=== PATIENT | male | born 1975 | race Caucasian/White ===

== ENCOUNTER 2020-10-23 17:58 | Emergency (ER) | payer OTHER, SELFPAY ==
--- NOTE | ~2020-10-23 | XR_ITS ---
EXAMINATION: XR hand LT min 3V DATE: 10/23/2020 18:46 INDICATION: Left hand pain. Palmar laceration. TECHNIQUE: 3 views of left hand were obtained. COMPARISON: Left wrist radiographs 06/19/2017 FINDINGS: Bone alignment is normal. No fracture. There is mild osteoarthritis of first carpometacarpa l joint and first interphalangeal joint. No radiopaque foreign body. IMPRESSION: 1. No fracture or radiopaque foreign body. Reviewed, dictated and finalized at location A.
[2020-10-23 18:25] VITALS: BP 101/50; PULSE 60; RESP 15; TEMP 36.6; O2SAT 100
--- NOTE | 2020-10-23 18:40 | PC.NURSE ---
xray at bedside.
[2020-10-23 18:49] VITALS: PULSE 87; RESP 15; O2SAT 98
--- NOTE | 2020-10-23 18:53 | ED.WOUNDLAC ---
HPI - Wound/Laceration General Chief Complaint: Wound/Laceration Stated Complaint: hand laceration Time Seen by Provider: 10/23/20 18:02 Source: patient Mode of arrival: ambulatory Limitations: no limitations History of Present Illness HPI narrative: This is a 45-year-old male that presents to the emergency department for left hand laceration sustained just prior to arrival. Reports he was trying to put a mower up on a trailer. Reports the mower fell and landed on his left hand. Reports a laceration to the palm. He is not up-to-date on tetanus. Denies decreased range of motion or numbness. Related Data Allergies Allergy/AdvReac Type Severity Reaction Status Date / Time No Known Allergies Allergy Unverified 10/23/20 18:04 Review of Systems Review of Systems: Narrative: CONSTITUTIONAL: Denies fever SKIN: Reports laceration MUSCULOSKELETAL: Denies joint pain, or myalgia. NEUROLOGIC: Denies numbness All systems reviewed & are unremarkable except as noted in HPI and below PMFSH Past Medical History Medical History (Updated 10/23/20 @ 21:18 by Madhavi Garza PA-C) History of hyperlipidemia History of hypertension Exam Narrative: Exam Narrative: GENERAL: Well-appearing, well-nourished, and in no acute distress. HEAD: Normocephalic, atraumatic. EYES: EOMI. EXTREMITIES: Normal range of motion. Left palm with 5cm linear laceration into subcutaneous tissue SKIN: Warm, dry, no rash. NEURO: No focal deficits. Alert and oriented x3. PSYCH: Normal mood and affect Course Vital Signs Vital signs: Vital Signs Temperature 98 F 10/23/20 18:25 Pulse Rate 60 10/23/20 18:25 Respiratory Rate 15 10/23/20 18:25 Blood Pressure 101/50 L 10/23/20 18:25 Pulse Oximetry 100 10/23/20 18:25 Temperature 98 F 10/23/20 18:25 Pulse Rate 97 10/23/20 19:53 Respiratory Rate 18 10/23/20 19:03 Blood Pressure 140/97 H 10/23/20 19:53 Pulse Oximetry 96 10/23/20 19:53 Procedures Laceration Laceration 1: Date: 10/23/20 Time: 21:11 Site: hand Side (If applicable): left Size (cm): 5 Description: linear Depth: simple, single layer Local Anesthetic: lidocaine 1% and with epi Amount of anesthesia used (mL): 4 Pre-repair: wound explored and irrigated extensively ====== Skin Level ====== Skin layer closed with: nylon Size (cm): 5-0 Number of sutures: 6 Technique: simple, interrupted ====== Subcutaneous Layer ====== ====== Muscle Layer ====== ====== Tendon Layer ====== MDM - Wound/Laceration MDM Narrative Medical decision making narrative: Patient presents emergency department for laceration to the left hand sustained just prior to arrival. Wound was irrigated and closed with sutures. Left hand x-rays without acute osseous abnormalities or foreign body. Patient was updated on tetanus. He was educated on wound care. He is to follow-up with primary care doctor. He was given warnings to return to the ER Imaging Data Radiologist's impression: ITS Impressions Hand X-Ray 10/23/20 18:47 IMPRESSION: 1. No fracture or radiopaque foreign body. Critical Care Time Critical Care Time Critical Care Time: No Discharge Plan Discharge Clinical Impression: Laceration Patient Disposition: Home, Self-Care Condition: Stable Instructions: Antibiotic Form, Care For Your Stitches (ED), Laceration (ED) Additional Instructions: Return to the emergency department if you experience fever, redness or swelling of your wound, abnormal drainage from your wound, or any other symptoms that are concerning to you. Apply antibiotic ointment daily. Do not soak the wound. Clean with mild soap and water daily. Take oral antibiotic as prescribed Follow-up with your primary care doctor for suture removal in 10-14 days. Prescriptions: New cephalexin 500 mg capsule 500 mg PO Q8H 5 Days Qty: 15 RF
[2020-10-23] MEDS: TETANUS,DIPHTHERIA,AC PERTUSSIS ADULT (0.5 ML) BOOSTRIX IM (18:54)
[2020-10-23 19:03] VITALS: BP 135/92; PULSE 90; RESP 18; O2SAT 96
[2020-10-23 19:53] VITALS: BP 140/97; PULSE 97; O2SAT 96
[2020-10-23] MEDS: ONDANSETRON HCL ODT 4 MG TABLET (20:48)
[2020-10-23 21:40] VITALS: BP 137/84; PULSE 82; RESP 20; O2SAT 97
== END 2020-10-23 21:43 | disposition home or self-care (01) ==
PROVIDERS: Emergency Provider Emergency Medicine; PCP Nurse Practitioner Family
DX: S61.412A Laceration without foreign body of left hand, initial encounter (principal); E78.5 Hyperlipidemia, unspecified; I10 Essential (primary) hypertension; Z23 Encounter for immunization
CPT/HCPCS: 12002; 73130; 90471; 90715; 99283; A9270

== ENCOUNTER 2021-05-09 06:07 | Inpatient (IN) | payer OTHER, SELFPAY ==
[2021-05-09] VITALS (16 sets, daily range): BP systolic 101–160; BP diastolic 78–102; PULSE 99–117; RESP 18–28; TEMP 37.2–39.2; O2SAT 88–96; BMI 42.7
--- NOTE | ~2021-05-09 | XR_ITS ---
XR chest 1V portable DATE: 05/09/2021 07:48 INDICATION: Increasing shortness of breath, cough, fever. Covid-positive. TECHNIQUE: Portable upright AP chest on 05/09/2021 at 0739 hours COMPARISON: None FINDINGS: There are patchy infiltrates in the mid and particularly lower lung zones bilaterally. Heart size is borderline, not optimally evaluated on AP projection because of magnification. No pleural effusion or pneumothorax. IMPRESSION: Patchy bilateral mid and particularly lower lung infiltrates, suggesting bilateral pneumo sravanthi Reviewed, dictated and finalized at location A. TIZER OPERATOR IMPRESSION: Patchy bilateral mid and particularly lower lung infiltrates, sugge sting bilateral pneumonia
[2021-05-09] MEDS: ONDANSETRON INJ 4 MG/2 ML VIAL IV PUSH (07:57)
[2021-05-09] MEDS: ACETAMINOPHEN 500 MG TABLET 1000 MG PO (07:58)
[2021-05-09] MEDS: SODIUM CHLORIDE 0.9% IV 1,000 ML 999 ML IV CONT (07:59)
[2021-05-09 08:07] LABS: Basophils Percent Auto 0.3 % (0.2-1.2); Hematocrit 48.5 % (42.0-52.0); Hemoglobin 17.1 g/dL (14.0-18.0); Immature Granulocyte Absolute 0.04 K/mm3 (0.00-0.031); Immature Granulocyte Percent A 0.5 % (0-0.5); Lymphocytes Percent Auto 7.6 % (18.3-44.2); Mean Corpuscular HGB Conc 35.3 g/dl (32-36); Mean Corpuscular Hemoglobin 31.3 pg (26-34); Mean Corpuscular Volume 88.7 fl (80-100); Mean Platelet Volume 9.4 fl (7.4-10.4); Monocytes Absolute Auto 0.2 K/mm3 (0.1-0.6); Monocytes Percent Auto 2.9 % (2.6-8.5); Neutrophils Absolute Auto 7.1 K/mm3 (1.3-6.7); Neutrophils Percent Auto 88.7 % (45.5-73.1); Platelet Count Result 155 k/mm3 (150-375); Red Blood Count 5.47 M/mm3 (4.6-6.20); White Blood Count 7.9 K/mm3 (4.5-10.0)
[2021-05-09 08:24] LABS: Alanine Aminotransferase 50 U/L (4-50); Albumin Level 4.3 g/dL (3.5-5.1); Alkaline Phosphatase 70 U/L (38-126); Anion Gap 12 mmol/L (8-16); Aspartate Amino Transferase 40 U/L (17-59); Bilirubin,Total 0.8 mg/dL (0.2-1.3); Blood Urea Nitrogen 23 mg/dL (9-20); Calcium 8.6 mg/dL (8.4-10.2); Carbon Dioxide 21 mmol/L (22-30); Chloride 103 mmol/L (98-107); Estimated CRCL calculation 129 ml/min; Estimated Glomerular Filt Rate > 60; Glucose 139 mg/dL (65-110); Potassium 3.7 mmol/L (3.4-5.0); Sodium 136 mmol/L (137-145)
--- NOTE | 2021-05-09 09:32 | ED.FEVER ---
HPI - Fever General Chief Complaint: Fever Stated Complaint: Fever, COVID + Time Seen by Provider: 05/09/21 07:01 History of Present Illness HPI Narrative: Patient is a 45-year-old male who presents ER with cough and shortness of breath. Recently diagnosed. Reports fevers and chills. He also has had some nausea vomiting diarrhea. No alleviating factors. Concerned he is dehydrated. Related Data Home Medications Medication Instructions Recorded Confirmed albuterol sulfate 2 inh INHALATION Q4-5H PRN 05/09/21 05/09/21 azithromycin 250 mg PO DAILY 05/09/21 05/09/21 loratadine 10 mg PO DAILY 05/09/21 05/09/21 losartan 50 mg PO DAILY 05/09/21 05/09/21 pravastatin 40 mg PO DAILY 05/09/21 05/09/21 Allergies Allergy/AdvReac Type Severity Reaction Status Date / Time No Known Allergies Allergy Unverified 05/09/21 10:23 Review of Systems Review of Systems: All systems reviewed & are unremarkable except as noted in HPI and below Constitutional: Constitutional: Reports chills, Reports fatigue and Reports fever(s) ENT: Reports nasal congestion and Reports sore throat Cardiovascular: Cardiovascular: Denies chest pain, Denies rapid heart rate and Denies radiating jaw, neck or arm pain Respiratory: Respiratory: Reports cough, Reports dyspnea and Denies wheezing Gastrointestinal: Gastrointestinal: Denies abdominal pain, Reports diarrhea, Reports nausea and Reports vomiting PMFSH Past Medical History Medical History (Updated 05/09/21 @ 17:22 by Joseph Mina MD) History of hyperlipidemia History of hypertension Family History Family History (Updated 05/09/21 @ 13:51 by Cornelia Moeller RN) Father Acute myocardial infarction Mother Diabetes mellitus Coronary arteriosclerosis after coronary artery bypass grafting Social History Social History Smoking status: Never smoker Alcohol intake: never Substance use: never Spiritual care concerns: No Exam Narrative: GENERAL: Well-appearing, well-nourished, and in no acute distress. HEAD: Normocephalic, atraumatic. CHEST: Clear to auscultation. No respiratory distress. HEART: Tachycardic and regular. Normal peripheral pulses. ABDOMEN: Soft, nontender, nondistended. EXTREMITIES: Normal range of motion. No edema. SKIN: Warm, dry, no rash. NEURO: Alert and oriented x3. PSYCH: Normal mood and affect. 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 Vital Signs Vital signs: Vital Signs Temperature 100.8 F H 05/09/21 06:18 Pulse Rate 117 H 05/09/21 06:18 Respiratory Rate 24 H 05/09/21 06:18 Blood Pressure 138/91 H 05/09/21 06:18 Pulse Oximetry 94 05/09/21 06:18 Temperature 99.0 F 05/09/21 06:56 Pulse Rate 116 H 05/09/21 16:12 Respiratory Rate 28 H 05/09/21 16:12 Blood Pressure 145/78 H 05/09/21 16:12 Pulse Oximetry 93 05/09/21 16:12 MDM - Fever Lab Data Result diagrams: 05/09/21 08:00 05/09/21 08:00 Labs: Lab Results 05/09/21 05/09/21 Range/Units 08:00 08:00 WBC 7.9 (4.5-10.0) K/mm3 RBC 5.47 (4.6-6.20) M/mm3 Hgb 17.1 (14.0-18.0) g/dL Hct 48.5 (42.0-52.0) % MCV 88.7 (80-100) fl MCH 31.3 (26-34) pg MCHC 35.3 (32-36) g/dl RDW 13.0 (11.5-14.5) % Plt Count 155 (150-375) k/mm3 MPV 9.4 (7.4-10.4) fl Immature Gran % (Auto) 0.5 (0-0.5) % Neut % (Auto) 88.7 H (45.5-73.1) % Lymph % (Auto) 7.6 L (18.3-44.2) % [place] % (Auto) 2.9 (2.6-8.5) % Eos % (Auto) 0.0 (0-4.4) % Baso % (Auto) 0.3 (0.2-1.2) % Lymph # (Auto) 0.60 L (0.9-3.2) K/mm3 [place] # (Auto) 0.2 (0.1-0.6) K/mm3 Eos # (Auto) 0.0 (0-0.3) K/mm3 Baso # (Auto) 0.0 (0.0-0.1) K/mm3 Abs Immat Gran (auto) 0.04 H (0.00-0.031) K/mm3 Absolute Neuts (auto) 7.1 H (1.3-6.7) K/mm3 Absolute Nucleated RBC 0.0 (0.0-0.012) K/mm3 Nucleated RBC % 0.0 (0.0-0.2) % Sodium 136 L (137-145) mmol/L Potassium 3.7 (3.4-
--- NOTE | 2021-05-09 13:39 | ADMGEN ---
This patient, Allen Cuello, was admitted to Virtual Bed 3rd Floor-2. Patient/family oriented to hospital policies and general routines including ID bracelet, bed and alarms, visiting hours, pain management, procedures, bathroom and other care routines, personal items, smoking policy, room service/diet, and visiting hours. Information on how to activate the Rapid Response Team has been discussed. Patient/Family are encouraged to report perceived risks to care and to ask questions if they do not understand what they are told or what they should do. ADMISSION PROCESS DONE IN ED AT BEDSIDE.
--- NOTE | 2021-05-09 16:48 | PC.NURSE ---
This patient, Allen Cuello, was received from [ER] on 05/09/21 at 1650. Patient/family oriented to unit policies and routines
[2021-05-09] MEDS: ACETAMINOPHEN 325 MG TABLET 650 MG PO ×2 (17:45→21:17)
--- NOTE | 2021-05-09 20:25 | PM.IMHP ---
H&P: HPI History of Present Illness Date/Time: 05/09/21 20:25 Chief Complaint: FEVER Narrative: This is a 45-year-old male with past medical history significant for dyslipidemia, hypertension, obesity. Patient presented to the emergency after he had a fever at home of 101.5 patient states that he tested positive for COVID last week, has been having fevers chills rigors generalized malaise body aches and pains cough nonproductive, poor appetite, night sweats. Patient states that he slept all through the weekend and finally today after he had a fever at home his prompted him to come to the emergency room. Preliminary workup was significant for chest x-rays with infiltrates. Decision has been made to admit the patient for further evaluation, management and treatment Review of Systems Review of Systems: Fevers chills poor appetite muscle aches and pains low energy Constitutional: Constitutional: Reports chills, Reports fatigue, Reports fever(s), Reports lethargy, Reports malaise and Reports poor appetite Eyes: Eyes: Denies change in vision ENT: Denies dysphagia, Denies nasal congestion, Denies nasal discharge, Denies nasal obstruction and Denies odynophagia Cardiovascular: Cardiovascular: Denies lightheadedness, Denies radiating jaw, neck or arm pain, Denies palpitations and Denies dyspnea on exertion Respiratory: Respiratory: Denies cough and Denies dyspnea Gastrointestinal: Gastrointestinal: Denies abdominal pain, Denies diarrhea, Denies nausea and Denies vomiting Genitourinary: Genitourinary: Reports no additional male genitourinary complaints and Reports as per HPI Musculoskeletal: Musculoskeletal: Reports no additional musculoskeletal complaints and Reports as per HPI Integumentary/Breasts: Skin/Breast: Denies rash Neurologic: Denies focal weakness and Denies Sensory deficit (Neuro) Psychiatric: Psychiatric: Reports no additional psychiatric complaints and Reports as per HPI Endocrine: Endocrine: Reports as per HPI, Denies change in libido and Denies cold intolerance Hematologic/Lymphatic: Hematologic/Lymphatic: Reports no additional hematologic/lymphatic complaints and Reports as per HPI Allergic/Immunologic: Allergic/Immunologic: Reports no additional allergic/immunologic complaints [facility] Past Medical History Medical History (Updated 05/10/21 @ 02:02 by Brayan Butts MD) History of hyperlipidemia History of hypertension Family History Family History (Updated 05/09/21 @ 13:51 by Cornelia Moeller RN) Father Acute myocardial infarction Mother Diabetes mellitus Coronary arteriosclerosis after coronary artery bypass grafting Social History Social History Smoking status: Never smoker Alcohol intake: never Substance use: never Spiritual care concerns: No Meds Home Medications and Allergies Home Medications Medication Instructions Recorded Confirmed Type albuterol sulfate 2 inh INHALATION Q4-5H PRN 05/09/21 05/09/21 History azithromycin 250 mg PO DAILY 05/09/21 05/09/21 History loratadine 10 mg PO DAILY 05/09/21 05/09/21 History losartan 50 mg PO DAILY 05/09/21 05/09/21 History pravastatin 40 mg PO DAILY 05/09/21 05/09/21 History Allergies Allergy/AdvReac Type Severity Reaction Status Date / Time No Known Allergies Allergy Unverified 05/09/21 10:23 Vital Signs Vital Signs - 24 hr 05/09/21 06:18 05/09/21 06:56 05/09/21 07:10 Temperature 100.8 F H 99.0 F Pulse Rate 117 H 99 Respiratory Rate 24 H 26 H 26 H Blood Pressure 138/91 H 160/85 H Pulse Oximetry 94 96 94 05/09/21 07:31 05/09/21 09:08 05/09/21 10:00 Temperature Pulse Rate 105 H 112 H Respiratory Rate 24 H 22 H Blood Pressure 156/86 H 138/88 Pulse Oximetry 93 94 93 05/09/21 11:00 05/09/21 12:00 05/09/21 14:03 Temperature Pulse Rate 108 H 110 H 108 H Respiratory Rate 28 H 20 28 H Blood Pressure 128/89 101/80 147/102 H Pulse Oximetry 93 91 92 05/09/21 16:12 05/09/21 18:06 Temp
[2021-05-09] MEDS: cefTRIAXone 2 GM in SODIUM CHLORIDE 0.9% IV 100 ML 200 ML IVPB (21:18)
[2021-05-10] VITALS (10 sets, daily range): BP systolic 126–158; BP diastolic 70–94; PULSE 90–100; RESP 16–19; TEMP 36.4–39.8; O2SAT 90–91
[2021-05-10 02:03] LABS: INR 1.1; Prothrombin Time 14.2 Seconds (11.1-14.7)
[2021-05-10 02:04] LABS: Alanine Aminotransferase 41 U/L (4-50); Estimated CRCL calculation 106 ml/min; Estimated Glomerular Filt Rate > 60
[2021-05-10] MEDS: REMDESIVIR 200 MG/NS 250 ML 200 MG/250 ML BAG 250 MG IVPB (02:28)
[2021-05-10] MEDS: ACETAMINOPHEN 325 MG TABLET 650 MG PO ×2 (05:17→20:30)
--- NOTE | 2021-05-10 10:15 | PM.IMPN ---
Progress Note: A&P Assessment and Plan (1) Pneumonia due to 2019-nCoV: Code(s): U07.1 - COVID-19; J12.82 - Pneumonia due to coronavirus disease 2019 Status: Acute Assessment and Plan: Tested positive for covid on Friday05/07/20 Chest xray Patchy bilateral mid and particularly lower lung infiltrates, suggesting bilateral pneumonia Patient has been started on remdesivir plus dexamethasone day 1 Zithromax and Rocephin added for bacterial coverage trend inflammatory markers IS and cornette therapy Blood cultures pending Sputum culture ordered Continue to monitor Supportive care (2) Hypoxia: Code(s): R09.02 - Hypoxemia Status: Acute Assessment and Plan: Saturations have declined Supplemental oxygen was provided Wean to maintain saturations >90% (3) Hypertension: Code(s): I10 - Essential (primary) hypertension Status: Acute Assessment and Plan: 151 Continue home losartan Add hydralazine PRN with parameters trend BP adjust therapy as indicated (4) Hyperlipidemia: Code(s): E78.5 - Hyperlipidemia, unspecified Status: Acute Assessment and Plan: Continue home pravastatin 40mg PO daily Time Spent With Patient Time with patient: Greater than 35 minutes Subjective Date/time seen: 05/10/21 10:15 Interval history: Date/Time: 05/09/21 20:25 Narrative: This is a 45-year-old male with past medical history significant for dyslipidemia, hypertension, obesity. Patient presented to the emergency after he had a fever at home of 101.5 patient states that he tested positive for COVID last week, has been having fevers chills rigors generalized malaise body aches and pains cough nonproductive, poor appetite, night sweats. Patient states that he slept all through the weekend and finally today after he had a fever at home his prompted him to come to the emergency room. Preliminary workup was significant for chest x-rays with infiltrates. Decision has been made to admit the patient for further evaluation, management and treatment Date/Time 05/10/21 1015 He is in bed, and stated that he is feeling ok. He denies chest pain, sweats, fevers, and chills. He does have a productive cough which is producing a brown sputum. He did state that his breathing gets worse with activity. He also states that he is not hungry and that he has been trying to eat more jellos, applesauce, and mostly liquids. He also admits to be just plain tired. He is congested, and had some nausea yesterday. Review of Systems Review of Systems: All systems reviewed & are unremarkable except as noted in HPI and below Exam Const: General: cooperative, comfortable, well developed, alert, awake, in distress, ill appearing and tired appearing Nutritional Appearance: overweight Orientation/consciousness: oriented to person, oriented to place, oriented to time and patient oriented x3 HENMT: Head: normal to inspection, normocephalic and atraumatic Ears: hearing grossly normal bilaterally Face and sinus: normal facial exam Mouth: Yes Normal oral and palatal mucosa present Eyes: General: appearance normal, both eyes and all related structures Alignment and Position: alignment normal Pupils: Equal, round and reactive pupils present EOM: EOMs intact bilaterally Neck: Neck: full ROM, no lymphadenopathy and no JVD Thyroid: thyroid normal Lymphatic: no lymphadenopathy noted Resp: Effort & Inspection: normal respiratory effort and able to speak in complete sentences Auscultation: clear to auscultation bilaterally Cardio: Jugular venous distension: no JVD Rate: regular rate Rhythm: regular rhythm Heart sounds: S1 normal heart sound present and S2 normal heart sound present : General: Yes deferred Skin: General skin exam: normal color Lesions: no lesions Rashes: no rashes Trauma: no lacerations or abrasions Wounds: no wounds Hair: pierce
[2021-05-10] MEDS: ENOXAPARIN 40 MG/0.4 ML SYRINGE SUB-Q (10:26)
[2021-05-10] MEDS: PRAVASTATIN SODIUM 20 MG TABLET 40 MG PO (10:26)
[2021-05-10] MEDS: LOSARTAN POTASSIUM 50 MG TABLET PO (10:26)
[2021-05-10] MEDS: cefTRIAXone 2 GM in SODIUM CHLORIDE 0.9% IV 100 ML IVPB (22:12)
[2021-05-10] MEDS: REMDESIVIR 100 MG/NS 250 ML 100 MG/250 ML BAG 250 MG IVPB (23:27)
[2021-05-11 01:00] VITALS: BP 147/75; PULSE 77; RESP 16; TEMP 37.1; O2SAT 92
[2021-05-11 05:00] VITALS: BP 135/73; PULSE 76; RESP 16; TEMP 37.3; O2SAT 93
[2021-05-11 06:41] LABS: Basophils Percent Auto 0.1 % (0.2-1.2); Hematocrit 45.1 % (42.0-52.0); Hemoglobin 16.1 g/dL (14.0-18.0); Immature Granulocyte Absolute 0.05 K/mm3 (0.00-0.031); Immature Granulocyte Percent A 0.7 % (0-0.5); Lymphocytes Absolute Auto 1.18 K/mm3 (0.9-3.2); Lymphocytes Percent Auto 16.6 % (18.3-44.2); Mean Corpuscular HGB Conc 35.7 g/dl (32-36); Mean Corpuscular Hemoglobin 31.3 pg (26-34); Mean Corpuscular Volume 87.7 fl (80-100); Monocytes Absolute Auto 0.3 K/mm3 (0.1-0.6); Monocytes Percent Auto 4.1 % (2.6-8.5); Neutrophils Absolute Auto 5.6 K/mm3 (1.3-6.7); Neutrophils Percent Auto 78.5 % (45.5-73.1); Platelet Count Result 178 k/mm3 (150-375); Red Blood Count 5.14 M/mm3 (4.6-6.20); Red Cell Distribution Width 12.7 % (11.5-14.5); White Blood Count 7.1 K/mm3 (4.5-10.0)
[2021-05-11] MEDS: ONDANSETRON INJ 4 MG/2 ML VIAL IV PUSH (06:41)
[2021-05-11 06:53] LABS: INR 1.1; Prothrombin Time 13.6 Seconds (11.1-14.7)
[2021-05-11 06:56] LABS: D Dimer 0.72 ug/mL (<0.48)
[2021-05-11 08:00] VITALS: BP 157/80; PULSE 77; RESP 20; TEMP 36.9; O2SAT 91
[2021-05-11] MEDS: ENOXAPARIN 40 MG/0.4 ML SYRINGE SUB-Q (08:23)
[2021-05-11] MEDS: PRAVASTATIN SODIUM 20 MG TABLET 40 MG PO (08:23)
[2021-05-11] MEDS: LOSARTAN POTASSIUM 50 MG TABLET PO (08:24)
--- NOTE | 2021-05-11 08:30 | PM.IMPN ---
Progress Note: A&P Assessment and Plan (1) Pneumonia due to 2019-nCoV: Code(s): U07.1 - COVID-19; J12.82 - Pneumonia due to coronavirus disease 2019 Status: Acute Assessment and Plan: Tested positive for covid on Friday05/07/20 Chest xray Patchy bilateral mid and particularly lower lung infiltrates, suggesting bilateral pneumonia Patient has been started on remdesivir plus dexamethasone day 2 Zithromax and Rocephin added for bacterial coverage Inflammatory markers: Dimer 0.72, Ferritin 1730, LDH 829, CRP 5.7 IS and cornette therapy Blood cultures NGTD Sputum culture ordered Continue to monitor Supportive care (2) Hypoxia: Code(s): R09.02 - Hypoxemia Status: Acute Assessment and Plan: Saturations have declined Supplemental oxygen was provided Wean to maintain saturations >90% (3) Hypertension: Code(s): I10 - Essential (primary) hypertension Status: Acute Assessment and Plan: 157/80 Continue home losartan Add hydralazine PRN with parameters trend BP adjust therapy as indicated (4) Hyperlipidemia: Code(s): E78.5 - Hyperlipidemia, unspecified Status: Acute Assessment and Plan: Continue home pravastatin 40mg PO daily Subjective Date/time seen: 05/11/21 0830 Interval history: Date/Time: 05/09/21 20:25 Narrative: This is a 45-year-old male with past medical history significant for dyslipidemia, hypertension, obesity. Patient presented to the emergency after he had a fever at home of 101.5 patient states that he tested positive for COVID last week, has been having fevers chills rigors generalized malaise body aches and pains cough nonproductive, poor appetite, night sweats. Patient states that he slept all through the weekend and finally today after he had a fever at home his prompted him to come to the emergency room. Preliminary workup was significant for chest x-rays with infiltrates. Decision has been made to admit the patient for further evaluation, management and treatment Date/Time 05/10/21 1015 He is in bed, and stated that he is feeling ok. He denies chest pain, sweats, fevers, and chills. He does have a productive cough which is producing a brown sputum. He did state that his breathing gets worse with activity. He also states that he is not hungry and that he has been trying to eat more jellos, applesauce, and mostly liquids. He also admits to be just plain tired. He is congested, and had some nausea yesterday. Date/Time 05/11/21 0830 He is in bed. His saturation was 86% and stated that he was feeling fine. He did state that he gets short of breath with activity, and he does get nauseated when he gets up. He does still have fatigue, body aches, and weakness. He also stated that when he turned over he did get a cold sensation on his chest and stated that he thought it was the oxygen. He denies chest pain, shortness of breath, diarrhea, constipation, nausea, or vomiting. He also complained of sweats over night. Did have to titrate his oxygen up to 4 L NC and he came up to 92% Review of Systems Review of Systems: All systems reviewed & are unremarkable except as noted in HPI and below Exam Const: General: cooperative, comfortable, well developed, alert, awake and tired appearing Nutritional Appearance: overweight Orientation/consciousness: oriented to person, oriented to place, oriented to time and patient oriented x3 HENMT: Head: normal to inspection, normocephalic and atraumatic Ears: hearing grossly normal bilaterally Face and sinus: normal facial exam Mouth: Yes Normal oral and palatal mucosa present Eyes: General: appearance normal, both eyes and all related structures Alignment and Position: alignment normal Cornea: corneas normal Pupils: Equal, round and reactive pupils present EOM: EOMs intact bilaterally Neck: Neck: full ROM, no lymphadenopathy and no JVD Thyro
[2021-05-11 08:39] LABS: Alanine Aminotransferase 45 U/L (4-50); Albumin Level 3.9 g/dL (3.5-5.1); Alkaline Phosphatase 61 U/L (38-126); Anion Gap 11 mmol/L (8-16); Aspartate Amino Transferase 39 U/L (17-59); Bilirubin,Total 0.5 mg/dL (0.2-1.3); Blood Urea Nitrogen 17 mg/dL (9-20); CRP 5.7 mg/dL (<1.0); Calcium 8.3 mg/dL (8.4-10.2); Carbon Dioxide 25 mmol/L (22-30); Chloride 101 mmol/L (98-107); Estimated CRCL calculation 162 ml/min; Estimated Glomerular Filt Rate > 60; Glucose 110 mg/dL (65-110); Lactate Dehydrogenase 829 U/L (313-618); Magnesium 2.1 mg/dL (1.6-2.3); Potassium 3.5 mmol/L (3.4-5.0); Sodium 137 mmol/L (137-145)
[2021-05-11 12:00] VITALS: BP 151/98; PULSE 93; RESP 18; TEMP 36.3; O2SAT 92
--- NOTE | 2021-05-11 12:22 | PC.NURSE ---
Pt unable to procedure sputum sample at this time, re-educated pt on sputum sample being needed and how to obtain.
[2021-05-11 13:40] LABS: Troponin I < 0.012 ng/mL (0.000-0.034)
[2021-05-11 16:00] VITALS: BP 158/87; PULSE 92; RESP 18; TEMP 36.9; O2SAT 91
[2021-05-11 20:00] VITALS: BP 143/89; PULSE 92; RESP 20; TEMP 36.1; O2SAT 92
[2021-05-11] MEDS: cefTRIAXone 2 GM in SODIUM CHLORIDE 0.9% IV 100 ML IVPB (22:25)
[2021-05-11] MEDS: REMDESIVIR 100 MG/NS 250 ML 100 MG/250 ML BAG 250 MG IVPB (22:54)
[2021-05-12] VITALS: BP 136/71; PULSE 72; RESP 20; TEMP 36.5; O2SAT 92
[2021-05-12 04:00] VITALS: BP 138/86; PULSE 79; RESP 26; TEMP 36.2; O2SAT 91
[2021-05-12 08:00] VITALS: BP 144/89; PULSE 71; RESP 14; TEMP 36.5; O2SAT 90
[2021-05-12 08:13] LABS: Alanine Aminotransferase 45 U/L (4-50); Estimated CRCL calculation 143 ml/min; Estimated Glomerular Filt Rate > 60
[2021-05-12 08:55] LABS: INR 1.1; Prothrombin Time 14.2 Seconds (11.1-14.7)
[2021-05-12] MEDS: PRAVASTATIN SODIUM 20 MG TABLET 40 MG PO (09:54)
[2021-05-12] MEDS: LOSARTAN POTASSIUM 50 MG TABLET PO (09:54)
[2021-05-12] MEDS: ENOXAPARIN 40 MG/0.4 ML SYRINGE SUB-Q (09:54)
[2021-05-12 12:00] VITALS: BP 154/90; PULSE 77; RESP 14; TEMP 36; O2SAT 93
--- NOTE | 2021-05-12 15:31 | PM.IMPN ---
Progress Note: A&P Assessment and Plan (1) Acute respiratory disease due to 2019 novel coronavirus: Code(s): U07.1 - COVID-19; J06.9 - Acute upper respiratory infection, unspecified Status: Acute Assessment and Plan: Positive COVID test on 05/07/2020 at [place] [facility]. CXR shows patchy bilateral mid and lower lung infiltrates. Hypoxic on presentation down to 88% Supplemental O2 as needed with goal saturation 92% or above Currently requiring 3 L supplemental O2 per nasal cannula. Wean to goal. Continue dexamethasone and remdesivir #4. ALT is within normal limits Supportive care to include bronchodilators, antipyretics, expectorants, incentive spirometry At this time will discontinue Rocephin and azithromycin as there were no signs/symptoms to suggest secondary bacterial pneumonia. Trend inflammatory markers Blood cultures with no growth to date Patient has not been vaccinated for COVID-19 (2) Hypertension: Code(s): I10 - Essential (primary) hypertension Status: Acute Assessment and Plan: Blood pressure reviewed and has been slightly elevated. Last BP 154/90. Continue home losartan. Consider up titration if BP remains elevated Monitor BP trends (3) Hyperlipidemia: Code(s): E78.5 - Hyperlipidemia, unspecified Status: Acute Assessment and Plan: LFTs are within normal limits Continue home pravastatin Subjective Date/time seen: 05/12/21 15:31 Interval history: Date of service: 05/12/2021 Allen Cuello is a very pleasant 45-year-old male with history of hypertension hyperlipidemia who is seen in follow-up for COVID pneumonia. He is feeling a lot better today. His cough has improved. He endorses conversational dyspnea that he states has improved quite a bit. At rest he is not feeling short of breath anymore. He is able to get up and walk around. His appetite has improved. He denies anosmia or dysgeusia. Denies nausea, vomiting, fever, chills, dizziness, lightheadedness. He is having infrequent loose stools. He denies dysuria, hematuria, frequency. He does endorse nocturia stating he gets up 2-3 times per night to urinate. Review of Systems Review of Systems: All systems reviewed & are unremarkable except as noted in HPI and below Exam Narrative: Mr. Cuello is a well-nourished, well-appearing 45-year-old male who is lying semi recumbent in bed. He appears comfortable and is in NARD. Neuro: awake, alert and oriented x4, speech clear, no focal neuro deficits noted HEENMT: normocephalic, atraumatic, EOMI, sclerae anicteric Neck: supple, no lymphadenopathy Respiratory: clear to auscultation bilaterally, nonlabored breathing Cardio: regular rate, regular rhythm with S1-S2 Abdomen: nondistended, normoactive bowel sounds, soft, nontender to palpation Extremities: no edema, erythema, or tenderness to palpation, DP pulses 2+ bilaterally Skin: no rashes or lesions, warm and dry Psych: Pleasant and cooperative, appropriate mood and affect, judgment and insight intact Objective Data Vital Signs Vital Signs: Vital Signs - 24 hr 05/11/21 16:00 05/11/21 20:00 05/12/21 00:00 Temperature 98.4 F 96.9 F L 97.7 F Pulse Rate 92 92 72 Respiratory Rate 18 20 20 Blood Pressure 158/87 H 143/89 H 136/71 Pulse Oximetry 91 92 92 05/12/21 04:00 05/12/21 08:00 05/12/21 12:00 Temperature 97.2 F L 97.7 F 96.8 F L Pulse Rate 79 71 77 Respiratory Rate 26 H 14 14 Blood Pressure 138/86 144/89 H 154/90 H Pulse Oximetry 91 90 93 Intake/Output Intake/Output: Intake & Output 05/09/21 05/10/21 05/11/21 05/12/21 23:59 23:59 23:59 23:59 Intake Total 1350 3140 2850 1070 Balance 1350 3140 2850 1070 Meds/Results Medications: Active Medications Generic Name Dose Route Start Last Admin Trade Name Freq PRN Reason Stop Dose Admin Acetaminophen 650 mg 05/09/21 10:10 05/10/21 20:30 Acetaminophen 325 Mg Tablet PO 650 mg Q4H PRN Admi
[2021-05-12 16:00] VITALS: BP 153/86; PULSE 68; RESP 14; TEMP 36.3; O2SAT 93
[2021-05-12 20:00] VITALS: BP 157/92; PULSE 79; RESP 20; RESP 22; TEMP 36.2; O2SAT 93
[2021-05-12] MEDS: REMDESIVIR 100 MG/NS 250 ML 100 MG/250 ML BAG 250 MG IVPB (20:20)
[2021-05-13] VITALS (7 sets, daily range): BP systolic 126–162; BP diastolic 71–91; PULSE 73–82; RESP 14–22; TEMP 36.3–36.9; O2SAT 91–95
[2021-05-13 06:47] LABS: Hematocrit 47.5 % (42.0-52.0); Hemoglobin 16.2 g/dL (14.0-18.0); Mean Corpuscular HGB Conc 34.1 g/dl (32-36); Mean Corpuscular Hemoglobin 30.9 pg (26-34); Mean Corpuscular Volume 90.5 fl (80-100); Mean Platelet Volume 9.3 fl (7.4-10.4); Platelet Count Result 229 k/mm3 (150-375); Red Blood Count 5.25 M/mm3 (4.6-6.20); White Blood Count 7.1 K/mm3 (4.5-10.0)
[2021-05-13 07:03] LABS: Alanine Aminotransferase 50 U/L (4-50); Albumin Level 4.2 g/dL (3.5-5.1); Alkaline Phosphatase 66 U/L (38-126); Anion Gap 10 mmol/L (8-16); Aspartate Amino Transferase 34 U/L (17-59); Bilirubin,Total 0.6 mg/dL (0.2-1.3); Blood Urea Nitrogen 20 mg/dL (9-20); Calcium 8.8 mg/dL (8.4-10.2); Carbon Dioxide 25 mmol/L (22-30); Chloride 101 mmol/L (98-107); Estimated CRCL calculation 143 ml/min; Estimated Glomerular Filt Rate > 60; Glucose 122 mg/dL (65-110); Lactate Dehydrogenase 784 U/L (313-618); Potassium 3.6 mmol/L (3.4-5.0); Sodium 136 mmol/L (137-145)
[2021-05-13 07:15] LABS: INR 1.1; Prothrombin Time 13.9 Seconds (11.1-14.7)
[2021-05-13] MEDS: ENOXAPARIN 40 MG/0.4 ML SYRINGE SUB-Q (09:16)
[2021-05-13] MEDS: PRAVASTATIN SODIUM 20 MG TABLET 40 MG PO (09:16)
[2021-05-13] MEDS: LOSARTAN POTASSIUM 50 MG TABLET PO (09:16)
--- NOTE | 2021-05-13 14:15 | PM.IMPN ---
Progress Note: A&P Assessment and Plan (1) Acute respiratory disease due to 2019 novel coronavirus: Code(s): U07.1 - COVID-19; J06.9 - Acute upper respiratory infection, unspecified Status: Acute Assessment and Plan: Positive COVID test on 05/07/2020 at [place] [facility]. CXR shows patchy bilateral mid and lower lung infiltrates. Hypoxic on presentation down to 88% Supplemental O2 as needed with goal saturation 92% or above Currently requiring 1 L supplemental O2 per nasal cannula. Wean to goal. Continue dexamethasone and remdesivir. Dose #5 tonight. ALT is within normal limits Supportive care to include bronchodilators, antipyretics, expectorants, incentive spirometry Monitor inflammatory markers, trending down Blood cultures with no growth to date Patient has not been vaccinated for COVID-19 Plan for home O2 eval tomorrow morning following final dose of Remdesivir tonight. Hopeful discharge tomorrow if continued improvement. (2) Hypertension: Code(s): I10 - Essential (primary) hypertension Status: Acute Assessment and Plan: Blood pressure reviewed and is stable. Last BP 126/85 Continue home losartan. Monitor BP trends (3) Hyperlipidemia: Code(s): E78.5 - Hyperlipidemia, unspecified Status: Acute Assessment and Plan: LFTs are within normal limits Continue home pravastatin Subjective Date/time seen: 05/13/21 14:15 Interval history: Date of service: 05/12/2021 Allen Cuello is a very pleasant 45-year-old male with history of hypertension hyperlipidemia who is seen in follow-up for COVID pneumonia. He feels well today. SOB has improved. Cough is less frequent. No nausea or vomiting. His appetite is good. He is able to get up and walk around. He denies chest pain or palpitations. Review of Systems Review of Systems: All systems reviewed & are unremarkable except as noted in HPI and below Exam Narrative: Mr. Cuello is a well-nourished, well-appearing 45-year-old male who is lying semi recumbent in bed. He appears comfortable and is in NARD. Neuro: awake, alert and oriented x4, speech clear, no focal neuro deficits noted HEENMT: normocephalic, atraumatic, EOMI, sclerae anicteric Neck: supple, no lymphadenopathy Respiratory: clear to auscultation bilaterally, nonlabored breathing Cardio: regular rate, regular rhythm with S1-S2 Abdomen: nondistended, normoactive bowel sounds, soft, nontender to palpation Extremities: no edema, erythema, or tenderness to palpation, DP pulses 2+ bilaterally Skin: no rashes or lesions, warm and dry Psych: Pleasant and cooperative, appropriate mood and affect, judgment and insight intact Objective Data Vital Signs Vital Signs: Vital Signs - 24 hr 05/12/21 16:00 05/12/21 20:00 05/13/21 00:00 Temperature 97.4 F L 97.2 F L 98.4 F Pulse Rate 68 79 73 Respiratory Rate 14 22 H 22 H Blood Pressure 153/86 H 157/92 H 162/91 H Pulse Oximetry 93 93 93 05/13/21 04:00 05/13/21 08:00 05/13/21 12:00 Temperature 97.9 F 97.8 F 98.3 F Pulse Rate 76 74 77 Respiratory Rate 21 H 16 14 Blood Pressure 146/88 H 139/78 126/85 Pulse Oximetry 94 95 93 Intake/Output Intake/Output: Intake & Output 05/10/21 05/11/21 05/12/21 05/13/21 23:59 23:59 23:59 23:59 Intake Total 3140 2850 2520 1270 Balance 3140 2850 2520 1270 Meds/Results Medications: Active Medications Generic Name Dose Route Start Last Admin Trade Name Freq PRN Reason Stop Dose Admin Acetaminophen 650 mg 05/09/21 10:10 05/10/21 20:30 Acetaminophen 325 Mg Tablet PO 650 mg Q4H PRN Administration Mild Pain (1-3) or Fever Hydrocodone Bitart/Acetaminophen 1 tab 05/09/21 10:10 Hydrocodone/Acetaminophen (*Crx) 5-325 Mg Tablet PO Q4H PRN Pain Rated 4-6 Albuterol 2 puff 05/09/21 20:30 Albuterol Sulfate (*Sp) Aerosol 1 Puff INHALATION Q4-6H PRN Shortness Of Breath Dexamethasone Sodium Phosphate
[2021-05-13] MEDS: REMDESIVIR 100 MG/NS 250 ML 100 MG/250 ML BAG 250 MG IVPB (21:20)
[2021-05-14 03:58] VITALS: BP 116/84; PULSE 66; RESP 20; TEMP 36.2; O2SAT 94
[2021-05-14 08:00] VITALS: BP 130/86; PULSE 64; RESP 20; TEMP 36.3; O2SAT 93
--- NOTE | 2021-05-14 10:15 | PM.DS ---
DS: Admitting Diagnosis Discharge Date Date of service 05/14/2021 at 10:15 a.m. Admitting Diagnosis COVID-19 pneumonia DS: Discharge Diagnosis Discharge Diagnosis (1) Acute respiratory disease due to 2019 novel coronavirus: Code(s): U07.1 - COVID-19; J06.9 - Acute upper respiratory infection, unspecified Status: Acute Assessment and Plan: Positive COVID test on 05/07/2020 at [place] [facility]. CXR shows patchy bilateral mid and lower lung infiltrates. Hypoxic on presentation down to 88% Supplemental O2 as needed with goal saturation 92% or above Currently requiring 1 L supplemental O2 per nasal cannula. Wean to goal. Continue dexamethasone and remdesivir. Dose #5 tonight. ALT is within normal limits Supportive care to include bronchodilators, antipyretics, expectorants, incentive spirometry Monitor inflammatory markers, trending down Blood cultures with no growth to date Patient has not been vaccinated for COVID-19 Plan for home O2 eval tomorrow morning following final dose of Remdesivir tonight. Hopeful discharge tomorrow if continued improvement. (2) Hypertension: Code(s): I10 - Essential (primary) hypertension Status: Acute Assessment and Plan: Blood pressure reviewed and is stable. Last BP 126/85 Continue home losartan. Monitor BP trends (3) Hyperlipidemia: Code(s): E78.5 - Hyperlipidemia, unspecified Status: Acute Assessment and Plan: LFTs are within normal limits Continue home pravastatin DS: Summary Hospital Course Hospital Course: Patient is a 45-year-old male with a past medical history of hypertension, hyperlipidemia, seasonal allergies who presented to the ED with complaints of fever of 101.5, chills, rigors, body aches, pains, cough, poor appetite. Patient was found that he was COVID positive on 05/07/2021. Patient was treated with IV remdesivir and dexamethasone which she received 5 doses. Patient was also treated with supplemental oxygen to maintain his saturations greater than 92%. Patient has been successfully weaned to room air. Patient was able to walk around the room and did not drop a sat and was satting about 93% with activity. Blood pressure was controlled maintained throughout the entire visit with continued use of his home losartan. Inflammatory markers were on Trend throughout the entire visit and today ferritin is 1240, LDH 784, CRP 2.0. Chest x-ray did show patchy bile Adderall mid and lower lung infiltrates. Patient was noted to be satting 88% upon arrival. Today patient was up walking. Patient states he feels a lot better today. Cough is gone. Patient denies chest pain, shortness of breath, nausea, vomiting, diarrhea, constipation, weakness, fatigue. Patient did state that he was cold throughout the night however return to the he he was better with that. Patient already has a follow-up appointment with his primary care provider. Patient will need to quarantine for another 5 days. Education was given to the patient about oxygen saturations. COVID education was also provided to the patient and patient verbalized understanding. Home O2 eval was performed and indicated the patient needed no oxygen. Status at Discharge Functional status at discharge: independent ambulation Overall status at discharge: patient is progressing back to baseline Time Spent with Patient Time attestation: Total time spent providing and/or coordinating discharge services:43 min Time spent: Greater than 30 minutes Specific discharge activities: Diagnostic testing, chart review, developing a treatment plan, education, care coordination documentation, physical exam, result review Exam Const: General: cooperative, comfortable, well developed, alert and awake Nutritional Appearance: overweight Orientation/consciousness: oriented to person, oriented to place, oriented to time and patient oriented x3 HENMT: Head: normal to inspection, normocephalic an
[2021-05-14] MEDS: LOSARTAN POTASSIUM 50 MG TABLET PO (10:28)
[2021-05-14] MEDS: PRAVASTATIN SODIUM 20 MG TABLET 40 MG PO (10:28)
[2021-05-14] MEDS: ENOXAPARIN 40 MG/0.4 ML SYRINGE SUB-Q (10:28)
[2021-05-14 12:00] VITALS: BP 115/74; PULSE 77; RESP 20; TEMP 36.3; O2SAT 93
[2021-05-14 12:42] VITALS: PULSE 71; O2SAT 94
[2021-05-14 12:46] VITALS: PULSE 84; O2SAT 92
--- NOTE | 2021-05-14 13:12 | PCRCNOTE ---
Home oxygen evaluation completed. Patient does not require home oxygen.
== END 2021-05-14 14:15 | disposition home or self-care (01) | DRG 177 ==
LOC: ANHED 08:03 → ANH3MEDSUR 13:00
PROVIDERS: Internal Medicine; Nurse Practitioner; Admitting Provider Family Medicine; Emergency Provider Emergency Medicine; PCP Nurse Practitioner Family; Visit Provider Physician Assistant
DX: U07.1 COVID-19 (principal); J12.82 Pneumonia due to coronavirus disease 2019; Z68.41 Body mass index [BMI] 40.0-44.9, adult; R09.02 Hypoxemia; I10 Essential (primary) hypertension; E78.5 Hyperlipidemia, unspecified; J30.1 Allergic rhinitis due to pollen; E66.9 Obesity, unspecified
CPT/HCPCS: 36415; 71045; 80053; 82565; 82728; 83615; 83735; 84460; 84484; 85025; 85027; 85380; 85610; 86140; 87040; 94618; 96361; 96365; 96367; 96372; 96375; 96376; 99285; A9270; G0378; J0456; J0696; J1100; J1650; J2405; J7030

== ENCOUNTER 2024-02-20 07:54 | Outpatient (CLI) | payer OTHER, SELFPAY ==
--- NOTE | ~2024-02-20 | MR_ITS ---
EXAMINATION: MR femur RT wo con, MR femur LT wo con DATE: 02/20/2024 08:55 INDICATION: Unspecified hip pain TECHNIQUE: 1. Magnetic resonance imaging (MRI) of the right femur was performed without intravenous contrast. S equences included axial, sagittal and coronal T1-weighted FSE and fluid sensitive FSE STIR. 2. MRI of the left femur was performed without intravenous contrast. Sequences included axial, sagit boni and coronal T1-weighted FSE and fluid sensitive FSE STIR. COMPARISON: None. FINDINGS: There is prominent increased fluid signal at the right femoral head. No definitive fracture line or d ouble line sign to suggest osteonecrosis however the cephalad aspect of the femoral head is unable to be visualized on the sagittal and coronal images due to its position at the margin of the field-of-v iew and which limits evaluation. Bone marrow signal is otherwise normal throughout the range of the v isualized bilateral femurs. Small right hip joint effusion. Physiologic amount fluid at the left hip and bilateral knee joints. Normal and symmetric muscle bulk and signal throughout both thighs. The vi sualized portions of the tendons at the proximal distal aspect of the bilateral lower limbs appear no rmal. No pathologically enlarged pelvic or inguinal lymphadenopathy. IMPRESSION: 1. Nonspecific marrow edema at the right femoral head with small right hip joint effusion. Differenti al would include osteonecrosis, subarticular stress/insufficiency fracture, infection or neoplasm. Ev aluation is limited by the large dzyqq-we-egek and positioning at the margin of the cgtfx-yx-qedw wit h the cephalad aspect of the femoral head not visualized on the sagittal and coronal imaging. Would r ecommend dedicated MRI of the right hip with and without contrast. Reviewed, dictated and finalized at location A. IMPRESSION: 1. Nonspecific marrow edema at the right femoral head with small right hip join t effusion. Differential would include osteonecrosis, subarticular stress/insuf ficiency fracture, infection or neoplasm. Evaluation is limited by the large fi eld-of-view and positioning at the margin of the wkhca-xp-szhh with the cephala d aspect of the femoral head not visualized on the sagittal and coronal imaging . Would recommend dedicated MRI of the right hip with and without contrast. IMPRESSION: 1. Nonspecific marrow edema at the right femoral head with small right hip join t effusion. Differential would include osteonecrosis, subarticular stress/insuf ficiency fracture, infection or neoplasm. Evaluation is limited by the large fi eld-of-view and positioning at the margin of the sbiix-la-rnuf with the cephala d aspect of the femoral head not visualized on the sagittal and coronal imaging . Would recommend dedicated MRI of the right hip with and without contrast.
== END 2024-02-20 07:55 | disposition home or self-care (01) ==
LOC: MICIMG 07:55
PROVIDERS: PCP Nurse Practitioner Family; Visit Provider Nurse Practitioner Family
DX: M25.451 Effusion, right hip (principal); M25.552 Pain in left hip
CPT/HCPCS: 73718

== ENCOUNTER 2024-02-23 01:55 | Day surgery (SDC) | payer OTHER, SELFPAY ==
[2024-02-10 10:12] VITALS: BMI 42.7
[2024-02-23 12:09] VITALS: BP 138/96; PULSE 60; RESP 18; TEMP 36.1; O2SAT 99; BMI 41.7
[2024-02-23] MEDS: LACTATED RINGERS 1,000 ML 150 ML IV CONT (12:20)
--- NOTE | 2024-02-23 12:26 | WPDANESEPPF ---
Anes - Initial Pre Proc Eval Procedure: Operation Date: 02/23/24 13:30 Proposed Procedures p Screening Colonoscopy - Scott Arreaga MD Date/Time: 02/23/24 12:26 Surgeon: Scott Arreaga MD Pre Op Diagnosis: neoplasm screening Patient Data Age: 48 Gender: M Height: 1.78 m Weight: 132 kg Last Vital Signs Temp 36.1 C L 02/23/24 12:09 Pulse 60 02/23/24 12:09 Resp 18 02/23/24 12:09 BP 138/96 H 02/23/24 12:09 Pulse Ox 99 02/23/24 12:09 O2 Del Method Room Air 02/23/24 12:09 Allergies Allergy/AdvReac Type Severity Reaction Status Date / Time aspirin AdvReac Mild Hives Verified 02/23/24 12:07 Home Medications Medication Instructions Recorded Confirmed Type rpgxqnyk-enwsmyjd-fhsuf acid 400 tablet PO 08/26/23 01/27/24 History mcg-vit K 20 mcg-lycop 300 mcg tablet (One-A-Day Men's Multivitamin) omeprazole 40 mg capsule,delayed 40 mg PO DAILY 08/26/23 02/10/24 History release rosuvastatin 10 mg tablet 10 mg PO DAILY #90 tabs 08/29/23 02/10/24 Rx amlodipine 5 mg tablet 5 mg PO DAILY #90 tabs 12/16/23 02/10/24 Rx loratadine 10 mg tablet (Allergy 10 mg PO DAILY #90 tabs 12/16/23 02/10/24 Rx Relief (loratadine)) losartan 100 mg tablet 100 mg PO DAILY #90 tabs 02/03/24 02/10/24 Rx calcium carbonate 600 mg PO DAILY 02/10/24 02/10/24 History Patient hx anesthesia problems: none Family hx anesthesia problems: none Results Review: All pre-operative results and documents have been reviewed as part of the pre-operative evaluation. [facility] Past Medical History Medical History (Updated 02/23/24 @ 12:28 by Danyel Akins MD) GERD (gastroesophageal reflux disease) History of hyperlipidemia History of hypertension Morbid obesity SALVATORE on CPAP Surgical History Surgical History History of cholecystectomy 2012 History of removal of testicle happened after 1977 Family History Family History Father Hypertension Heart disease Mother Diabetes mellitus Coronary arteriosclerosis after coronary artery bypass grafting Heart disease Grandparent Diabetes mellitus Social History Social History Social History: 01/26/24 declined SDOH Smoking status: Former smoker Tobacco type: cigars Alcohol intake: former Drinks per week: 1 Alcohol use details: none past 8 months Substance use: never Substance use type: does not use Do You Feel Safe in your Home?: Yes Lack of Transportation: No Lack of Food: Never True Current Housing: I Have Housing Concerned About Future Housing: No Difficulty Paying Gas/Electric Bills: No Difficulty Paying for Meds: No Currently Unemployed: No Education: Don't Know Difficulty w/ Childcare or Family Care: No Living arrangements: with family Occupation/Education: occupation Gender identity (if verbalized by the patient): Male Spiritual care concerns: No Agree to blood products: Yes Anes - Eval Final PreProcedure Day of Procedure 02/23/24 12:26 Patient weight: morbidly obese Heart: regular rate and rhythm Lungs: clear to auscultation Airway: Mallampati scale class II Neurological: alert and oriented Last oral intake: >/= 8 hours ASA classification: III Emergent: no Anesthetic plan: proceed Anesthesia type and monitoring: general GIVS and standard monitoring Results Review: All pre-operative results and documents have been reviewed as part of the pre-operative evaluation. Informed Consent: The patient's anesthetic plan and its attendant risks and benefits were discussed with the patient/family/POA. Questions were solicited and answers provided to the satisfaction of the patient/family/POA.
--- NOTE | 2024-02-23 12:37 | PM.HPGS ---
History of Present Illness History of Present Illness Consent: Risks, benefits, and alternatives have been discussed and questions answered. Patient agrees to proceed with procedure. Chief complaint: neoplasm screening Narrative: Allen Cuello is a 48 year old male here for first screening colonoscopy Review of Systems Review of Systems: All systems reviewed & are unremarkable except as noted in HPI and below PMFSH Past Medical History Medical History (Updated 02/23/24 @ 12:37 by Scott Arreaga MD) Colon cancer screening GERD (gastroesophageal reflux disease) History of hyperlipidemia History of hypertension Morbid obesity SALVATORE on CPAP Surgical History Surgical History History of cholecystectomy 2012 History of removal of testicle happened after 1977 Family History Family History Father Hypertension Heart disease Mother Diabetes mellitus Coronary arteriosclerosis after coronary artery bypass grafting Heart disease Grandparent Diabetes mellitus Social History Social History Social History: 01/26/24 declined SDOH Smoking status: Former smoker Tobacco type: cigars Alcohol intake: former Drinks per week: 1 Alcohol use details: none past 8 months Substance use: never Substance use type: does not use Do You Feel Safe in your Home?: Yes Lack of Transportation: No Lack of Food: Never True Current Housing: I Have Housing Concerned About Future Housing: No Difficulty Paying Gas/Electric Bills: No Difficulty Paying for Meds: No Currently Unemployed: No Education: Don't Know Difficulty w/ Childcare or Family Care: No Living arrangements: with family Occupation/Education: occupation Gender identity (if verbalized by the patient): Male Spiritual care concerns: No Agree to blood products: Yes Meds Home Medications and Allergies Home Medications Medication Instructions Recorded Confirmed Type hiwsampe-qneoazkn-xuckz acid 400 tablet PO 08/26/23 01/27/24 History mcg-vit K 20 mcg-lycop 300 mcg tablet (One-A-Day Men's Multivitamin) omeprazole 40 mg capsule,delayed 40 mg PO DAILY 08/26/23 02/10/24 History release rosuvastatin 10 mg tablet 10 mg PO DAILY #90 tabs 08/29/23 02/10/24 Rx amlodipine 5 mg tablet 5 mg PO DAILY #90 tabs 12/16/23 02/10/24 Rx loratadine 10 mg tablet (Allergy 10 mg PO DAILY #90 tabs 12/16/23 02/10/24 Rx Relief (loratadine)) losartan 100 mg tablet 100 mg PO DAILY #90 tabs 02/03/24 02/10/24 Rx calcium carbonate 600 mg PO DAILY 02/10/24 02/10/24 History Allergies Allergy/AdvReac Type Severity Reaction Status Date / Time aspirin AdvReac Mild Hives Verified 02/23/24 12:07 Vital Signs Vital Signs - 24 hr 02/23/24 12:09 Temperature 97.0 F L Pulse Rate 60 Respiratory Rate 18 Blood Pressure 138/96 H Pulse Oximetry 99 Oxygen Delivery Room Air Exam Const: General: comfortable and no acute distress HENMT: Face/Nose/Sinus: Normal nares present Eyes: General: appearance normal, both eyes and all related structures Neck: Neck: no JVD Resp: Auscultation: clear to auscultation bilaterally Cardio: Rate: regular rate Rhythm: regular rhythm GI: Inspection: non-distended GI Palp: Yes Soft to palpation Skin: General skin exam: normal color Neuro: General: gait normal Speech: normal speech Extrem: General: normal to inspection Psych: Mental Status: mental status grossly normal Assessment and Plan Assessment and plan (1) Colon cancer screening: Code(s): Z12.11 - Encounter for screening for malignant neoplasm of colon Status: Acute Assessment and Plan: colonoscopy
[2024-02-23 12:54] VITALS: BP 127/87; PULSE 75; RESP 20; O2SAT 98
[2024-02-23 13:04] VITALS: BP 135/87; PULSE 81; RESP 18; O2SAT 98
[2024-02-23 13:14] VITALS: BP 134/79; PULSE 79; RESP 20; O2SAT 99
== END 2024-02-23 13:29 | disposition home or self-care (01) ==
PROVIDERS: PCP Nurse Practitioner Family; Visit Provider Internal Medicine Gastroenterology
PROC: 0DJD8ZZ Inspection of Lower Intestinal Tract, Via Natural or Artificial Opening Endoscopic (ICD-10-PCS; CPT 45378; principal; 2024-02-23 13:30)
DX: Z12.11 Encounter for screening for malignant neoplasm of colon (principal); K57.30 Diverticulosis of large intestine without perforation or abscess without bleeding; K64.8 Other hemorrhoids; Z87.891 Personal history of nicotine dependence; E66.01 Morbid (severe) obesity due to excess calories; Z68.41 Body mass index [BMI] 40.0-44.9, adult
CPT/HCPCS: 45378; J2003; J2704; J7120

== ENCOUNTER 2024-02-24 15:29 | Outpatient (CLI) | payer OTHER, SELFPAY ==
--- NOTE | ~2024-02-24 | MR_ITS ---
EXAMINATION: MR hip RT wo/w con DATE: 02/24/2024 16:32 INDICATION: Right hip pain TECHNIQUE: Magnetic resonance imaging (MRI) of the right hip was performed without and with 20 mL Mu ltihance intravenous contrast. Sequences included full-field axial PD-weighted FS FSE and T1-weighted FSE, coronal of the pelvis with PD-weighted FS FSE, T2-weighted FSE and T1-weighted FSE, small field of view of the right hip with axial PD-weighted FS FSE, sagittal PD-weighted FS FSE, coronal PD-lotus ghted FS FSE and coronal T2 weighted FSE. Additional radial T1-weighted FGR oriented orthogonal to t he acetabular rim were obtained for evaluation of the labrum. Postcontrast axial T1-weighted FS FSE o f the pelvis and small pkdlq-ry-cpsy sagittal T1-weighted FS FSE of the left hip were also obtained. COMPARISON: None FINDINGS: Bones/labrum/cartilage: Alignment is normal. There is osteonecrosis with serpiginous low signal intensity margin underlying t he anterosuperior to posterior superior right femoral head. There is prominent surrounding marrow ryan ma extending into the right femoral neck. There appears to be cortical disruption along the anterior margin of the region of osteonecrosis with subtle flattening of the anterosuperior articular surface of the femoral head consistent with developing collapse. There is mild osteoarthritis at the right hi p with posterior and anterior predominant nonuniform joint space narrowing. There are small tears at the anterosuperior and posterior superior right acetabular labrum. Osteonecrosis is also seen underlying a slightly smaller region of the superior to anterosuperior lef t femoral head with parallel serpiginous low and high signal intensity double line sign at the margin s of the region of osteonecrosis but without surrounding marrow edema. There appears to be linear inc reased T2 signal underlying the articular cortex at the region of osteonecrosis at the left femoral h ead. Into the at the bilateral femoral heads over a slightly larger region on the right than the left . Fluid: Small right hip joint effusion with associated mild enhancing synovitis. Physiologic amount fluid in the left hip joint. Soft tissues: Normal and symmetric muscle bulk and signal in the pelvis and visualized proximal thighs. The iliopso as and gluteal tendons are normal. Mild tendinopathy without discrete tear at the bilateral proximal hamstring tendons. Limited evaluation of visceral organs of the pelvis is unremarkable. No pathologi sofia enlarged pelvic/inguinal lymphadenopathy. IMPRESSION: 1. 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 Reviewed, dictated and finalized at location A. IMPRESSION: 1. Osteonecrosis at the superior aspect of the bilateral femoral heads, more ex tensive on the right where there is also prominent surrounding marrow edema and enhancement and suggestion of developing collapse of the articular surface ant erosuperiorly.
== END 2024-02-24 15:30 | disposition home or self-care (01) ==
LOC: ANHIMG 15:31
PROVIDERS: PCP Nurse Practitioner Family; Visit Provider Nurse Practitioner Family
DX: M87.852 Other osteonecrosis, left femur (principal); M87.851 Other osteonecrosis, right femur
CPT/HCPCS: 73723; A9577

== ENCOUNTER 2024-03-22 13:34 | Outpatient (CLI) | payer OTHER, SELFPAY ==
--- NOTE | ~2024-03-22 | XR_ITS ---
EXAMINATION: XR lg joint inject/asp w image DATE: 03/22/2024 14:57 INDICATION: Right hip pain secondary to avascular necrosis TECHNIQUE: A time-out was performed to verify the patient's name, date of , and procedure to b e performed. The procedure including the risks, benefits, and alternatives was discussed with the pat ient. Risks discussed included bleeding, infection, nontargeted injection, and inadequate (unsuccessf ul) pain relief. The patient understood the risks and agreed to proceed. The skin overlying the righ t groin was prepped and draped in usual sterile fashion. Anesthetic was administered with 1% lidocai ne subcutaneously. A 21 Gauge spinal needle was advanced in a superior medial location of the right f emoral head with fluoroscopic guidance until bone was encountered. A small amount of contrast was then placed and confirmed adequate positioning within the femoral acet abular joint. Once adequate positioning was confirmed, the cocktail of 2 cc of 0.5 bupivacaine and 80 mg Depo-Medrol along with approximately 12 cc of lidocaine was injected into the right femoral aceta bular joint space. Fluoroscopy exposure time was 0.8 minutes. The total number of images was 1. DOSE AREA PRODUCT: 0.6 Gy-cm2 FINDINGS: Real-time fluoroscopy demonstrates a spinal needle projecting at the level of the upper med ial third of the right femoral head, a suitable site for injection. IMPRESSION: Technically successful fluoroscopic guided right hip injection, as detailed above. Reviewed, dictated and finalized at location A. [employer] IMPRESSION: Technically successful fluoroscopic guided right hip injection, as detailed abo ve.
== END 2024-03-22 13:35 | disposition home or self-care (01) ==
LOC: ANHIMG 13:39
PROVIDERS: PCP Nurse Practitioner Family; Visit Provider Orthopaedic Surgery
DX: M16.11 Unilateral primary osteoarthritis, right hip (principal)
CPT/HCPCS: 20610; 77002; J1010; J2003; Q9966